=== PATIENT | male | born 1985 | race Caucasian/White ===

== ENCOUNTER 2019-04-11 02:48 | Emergency (ER) | payer BC ==
[~2019-04-11] VITALS: Ht 190.5 cm; Wt 111.6 kg
[2019-04-11] MEDS ORDERED: IBUPROFEN 800 MG TABLET ONE (03:37)
[2019-04-11] MEDS ORDERED: IBUPROFEN 800 MG TABLET PO ONE (03:45)
--- NOTE | 2019-04-11 06:15 | NUR ---
Patient discharged to home in stable conditon. Written and verbal after care instructions given. Patient verbalizes understanding of instructions. AMBULATORY W/ STABLE GAIT ALL BELONGINGS W/ PT
[2019-04-11 06:17] VITALS: BP 132/73
== END 2019-04-11 06:17 | disposition home or self-care (01) ==
LOC: ER 02:57
DX: S33.5XXA Sprain of ligaments of lumbar spine, initial encounter (principal); R07.89 Other chest pain; F17.200 Nicotine dependence, unspecified, uncomplicated; V43.52XA Car driver injured in collision with other type car in traffic accident, initial encounter; Y93.89 Activity, other specified; Y92.410 Unspecified street and highway as the place of occurrence of the external cause; Y99.8 Other external cause status
CPT/HCPCS: 71046; 93005; A4663